=== PATIENT | female | born 1995 | race Caucasian/White ===

== ENCOUNTER 2025-07-13 17:48 | Emergency (ER) | payer OTHER, SELFPAY ==
--- OUTSIDE RECORDS SUMMARY | 2025-07-12 13:00 | XMS_ITS | Encounter Summary ---
Author Organization [facility] Address [address] [facility] [place] [address] Phone Care Team Providers Care Spar Machine Operator Name Role Phone Gina Maria APRN, CNP Primary Care P lexi Reason for Visit * Reason Comments Depression * Behavioral Health (Routine) - Authorized Specialty Diagnoses / Procedures Referred By Contbillie t Referred To Contact Licensed Clinical Professional Counselor / Behavioral Health Diagnoses Stress Procedures INDIVIDUAL THERAPY 45 Fani Steve [facility] 1 [place] [address] Phone: tel: fax: Referral ID Status Reason Start Date Expiration Date V isits Requested Visits Authorized [id number] Authorized 50 25 Encounter Details Date Type Department Care Team (Late st Contact Info) Description 07/12/2025 1:00 PM CDT Telemedicine [facility] 1 [place] [phone] Fani Steve [facility] 1 [place] [address] MDD (major depressive disorder), recurrent episode, moderate (HCC) (Primary Dx); Trauma and stressor-related disorder Discharge Disposition: Discharged to home or Selfcare Social History Tobacco Use Types Packs/Day Years Used Date Smoking Tobacco: Never Smokeless Tobacco: Never Alcohol Use Standard Drinks/Week Comments Never 0 (1 standard drink = 0.6 oz pur e alcohol) Sexually Active Control Partners Comments Not Currently Comments No Sex and Gender Information Value Date Recorded Sex Assigned at Not on file Legal Sex Female 7:18 PM CDT Gender Identity Not on file Sexual Orientation Not on file documented as of this encounter Patient Instructions * Patient Instructions* Fani Steve, [facility] - 07/12/2025 1:00 PM CDT Crisis Resources In-Home, Mental Health Crisis Assessment [facility] Crisis Intervention Team?[phone] ([place]) [facility] Crisis Intervention Team?.. [phone] ([place]) [facility] Available for individual, family, or friend for in-home assessment of mental health issues Crisis Stabilization- Residential 24-hour or short-term supervised care at a facility. Available for persons 18 and older, who are experiencing a mental health crisis and do not need hospitalization. [facility] provides 24-hour short-term supervised care for persons aged 18 years and older experiencing an acute psychiatric crisis that does not require hospitalization. The average length of stay is 14 days. Admission to our crisis unit is voluntary; we only accept those individuals who choose to come to the unit. The facility is not prepared to work with persons who may be acutely suicidal or homicidal or who are experiencing serious medical problems or complications. The unit is staffed with nurses and behavioral health technicians and is not a hospital. During their stay on the unit, clients spend time in groups that meet four or more times a day. Thegroups provide education on topics helpful to individuals in crisis and clients are expected to attend and to participate actively. [facility] will provide a safe and supportive environment conducive to achieving stability. No alcohol or drugs are allowed in the unit. All medications are dispensed by [facility] nurses at appropriate times. No visitors are allowed on the unit but there is a phone available for clients to use and make calls. Persons may refer themselves for crisis residential/stabilization services and may be referred by hospitals, police departments, mental health agencies, social service agencies, and families. [facility] ?.....? .[phone] [facility] ?.???..[phone] Brief Crisis Phone Counseling Behavioral Health Response (BHR)?[phone] / [phone] ([facility] (Medicaid patients) ?..[phone] If non-Medicaid patient, the caller will be referred to a local service provider Emergency Sites for Mental Health Assessment and Treatment Behavioral Health Urgent Care [facility] (5yrs old to adult) [address] [address] Friday - Friday 9:00 am - 7:00 pm *Last patient seen at 6:00 pm Hospitals with Inpatient Psychological Services for Children and/or Adolescents and Adults [facility] (also has substance use treatment for adults) (adolescent, adult) [address] [place] [address] [facility] (children, adolescents, adult) after business hours [phone] [address] [facility] Behavioral Health (children, adolescents, adult) [address] [place] [address] [facility] (also has substance use treatment for adults) (children, adolescents, adult) Phone: or [phone] [address] [place] [address] [facility] (adolescent, adult) Phone: or [phone] [address] [place] [address] Hospitals with Inpatient Psychological Services for Adults only [facility] (adult, geriatric) [address] [place] [address] [facility] (adult) [address] [place] [address] [facility] (adult) Phone: or [phone] [address] [place] [address] [facility] (geriatric only) Phone: or [phone] [address] [place] [address] [facility] (adult, geriatric) [address] [place], [place] Hotline Numbers National Suicide Prevention Hotline: ?..?.9-376-988-TALK (4031) or [address] [place] Sexual Assault Hotline?..?.?4-375-424-BANNER (3909) [facility] Sexual Assault Victims Support?..5-203-974-0793 [facility] Child Abuse Hotline?.7-716-372-8026 Domestic Violence Hotline?.?.3-156-307-S [place] (8881) [facility] Lifeline?.? Trans Lifeline?.? LGBTQ Partner Abuse & Sexual Assault Line . .1- 290.189.9544 [facility] including support for opioids or other substances.? Crisis Text Line???..?.?.? Text the word help to 808574 [facility] Text Line for service referrals.?.?. Text the word help to 650032 Warm Lines [facility]?4-630-318-79 [address] [place] Warmline? 9a-9p/7 days a week [facility] Warmline?..4-361-187-7452 documented in this encounter Progress Notes * Fani Steve LCPC - 07/12/2025 1:00 PM CDT [facility] CLINICAL PROGRESS NOTE NAME: Fabian Corado AGE: 29 y.o. DATE OF : 1995 DATE OF SERVICE: 07/12/2025 START TIME: 1:00 pm END TIME: 1:45 pm DIAGNOSIS: 1. MDD (major depressive disorder), recurrent episode, moderate (HCC) 2. Trauma and stressor-related disorder This session was conducted via telephone due to technological issues. Hyacinth would not allow her to access the video. TREATMENT PLAN: Goals Addressed This Visit's Progress I just want help. I don't want to be like this. On track Goal/Objective: Decrease symptoms associated with trauma. Anticipated Time Frame for Goal Completion: 6 months Goal Reviewed with: patient Readiness to change: Ready to change Department associated with goal: [facility] Steps to achieve goal: will share personal trauma story in counseling/psychotherapy sessions. will learn/identify how trauma has impacted personal life, physical health and behavioral health. will identify and practice, at least two, skills/activities/routines, to gain relief from the impact of trauma. Will attend individual and/or group therapy at least 1x/month at least 6 sessions PROBLEM STATUS: Fabian was seen today due to the following concerns: Anxiety: avoidance difficulties concentrating nervousness stress worry Depression: decreased motivation decreased participation in activities of daily living emotionality (anger, crying, irritability) fatigue/loss of energy feeling of hopelessness loss of interest/pleasure in activities low self esteem/self image mood regulation difficulties Trauma: emotional distress/physical reactions to discriminative stimuli hypervigilance negative thoughts or assumptions about self or world difficulty trusting others decreased interest in activities feelings of guilt or blame Persistent negative emotional state hopelessness Fabian presented in a depressed affect and actively engaged in the individual counseling session. Fabian processed challenges with completing tasks such as cleaning up, doing dishes, showering, etc. Fabian stated that she does not feel normal and at times she doesn't know who she is. Per patient's report, I want to be someone who is happy and someone who is confident in their decisions. Based upon the presenting problem the following treatment modalities were utilized: Cognitive Behavioral Therapy Cognitive Challenging Cognitive Restructuring Supportive/Client Centered Therapy DBT, TF-CBT FUNCTIONAL ASSESSMENT: Can the patient perform Activities of Daily Living (ADL'S)?: Patient is able to complete ADL's independently Does patient have the ability and the capacity to respond to treatment?: Yes THERAPEUTIC INTERVENTIONS USED: This clinician provided therapeutic interventions for: Anxiety: increasing insight into current difficulties identifying and reducing avoidance behaviors contributing negatively to anxious mood and behavior identifying and decreasing cognitive distortions/negative automatic thoughts contributing negatively to anxious mood and behavior identifying, verbalizing, and processing feelings effectively Depression: increasing insight into current difficulties identifying and decreasing cognitive distortions/negative automatic thoughts contributing negatively to depressed mood and behavior identifying, verbalizing, and processing feelings effectively implementing strategies to improve self esteem/self worth . Fabian verbalized an understanding and responded well to interventions provided during treatment session. PROGRESS TOWARDS GOALS: Fabian reported no change in symptoms. \ MENTAL STATUS EXAM: Fabian is: alert. Affect is: mood congruent. Mood is: depressed sad. There is: no current suicidal ideation. This content writer will continue to assess. There is: no history of homicidal ideation.. TREATMENT RECOMMENDATIONS/FOLLOW UP: Recommendations for follow up treatment plan: Continue individual therapy as needed for support and guidance. FANI STEVE LCPC documented in this encounter Plan of Treatment Upcoming Encounters Date Type Department Care Team (Late st Contact Info) Description 07/26/2025 1:00 PM CDT Outpatient Clinic Visit [facility] [address] [place] [address] Fani Steve [facility] [address] [place] [address] 08/01/2025 10:15 AM CDT Office Visit [facility] - Primary Care - [place] [address] [place] [address] Gina Maria APRN, STOCK ROLLER [address] [place] [address] documented as of this encounter Goals Goal Patient Goal Type Associated Problems Recent Progress Patient-Stated? Author I just want help. I don't want to be like this. Behavioral Health On track( 025 1:00 PM CDT) No Fani Steve LCPC Note: Goal/Objective: Decrease symptoms associated with trauma. Anticipated Time Frame for Goal Completion: 6 months Goal Reviewed with: patient Readiness to change: Ready to change Department associated with goal: [facility] Steps to achieve goal: will share personal trauma story in counseling/psychotherapy sessions. will learn/identify how trauma has impacted personal life, physical health and behavioral health. will identify and practice, at least two, skills/activities/routines, to gain relief from the impact of trauma. Will attend individual and/or group therapy at least 1x/month at least 6 sessions documented as of this encounter Visit Diagnoses Diagnosis MDD (major depressive disorder), recurrent episode, moderate (HCC)- Primary Major depressive disorder, recurrent episode, moderate Trauma and stressor-related disorder documented in this encounter Care Teams Spar Machine Operator Relationship Specialty Start Date End Date Gina Maria APRN, STOCK ROLLER [address] [place] [address] PCP - General Advanced Practice Nurse 04/26/24 documented as of this encounter
--- OUTSIDE RECORDS SUMMARY | 2025-07-13 17:54 | XMS_ITS | Encounter Summary ---
Author Organization [facility] Care Team Providers Care National Flatbed Truck Driver Name Role Phone Gina Maria APRN, CNP Primary Care P rovider Encounter Details Date Type Department Care Team (Latest Contact Info) Description 07/12/2025 Travel Social History Tobacco Use Types Packs/Day Years [...] on file documented as of this encounter Plan of Treatment Upcoming Encounters Date Type Department Care Team (Late Contact Info) Description 07/26/2025 1:00 PM CDT [facility] 1 [place] [phone] Fani Steve, [facility] 1 [place] [address] 08/01/2025 10:15 AM CDT Office Visit [facility] - Primary Care - [place] [address] [place] [phone] Gina Maria APRN, CNP [address] [place] [address] documented as of this encounter Goals Goal Patient Goal Type Associated Problems Recent Progress Patient-Stated? Author I just want help. I don't want to be like this. Behavioral Health On track( 025 1:00 PM CDT) Fani Ni, [facility] Note: Goal/Objective: Decrease symptoms associated with trauma. Anticipated Time Frame for Goal Completion: 6 months Goal Reviewed with: patient Readiness to change: Ready to change Department associated with goal: [facility] Steps to achieve goal: [...] documented as of this encounter Visit Diagnoses Not on filedocumented in this encounter Care Teams National Flatbed Truck Driver Relationship Specialty Start Date End Date Gina Maria APRN, RECOVERY COLLECTOR [address] [place] [address] PCP - General Advanced Practice Nurse 04/26/24 documented as of this encounter
--- OUTSIDE RECORDS SUMMARY | 2025-07-13 17:54 | XMS_ITS | Clinical Summary ---
Author Organization [facility] Address [address] [place] [address] Phone Care Team Providers Care Machine Operator General Name Role Phone Gina Maria APRN, MELQUIADES Primary Care P lexi Allergies No known active allergies Medications etonogestrel (Nexplanon) 68 MG Implant by Subcutaneous route once. Active Active Problems Problem Noted Date Diagnosed Date MDD (major depressive disord er), recurrent episode, moderate 02/18/2025 Encounters Date Type Department Care Team Description 07/12/2025 1:00 PM CDT Telemedicine [facility] [address] [place] [phone] Fani Steve LCPC MDD (major depressive disorder), recurrent episode, moderate (HCC) (Primary Dx); Trauma and stressor-related disorder Discharge Disposition: Discharged to home or Selfcare 07/12/2025 Travel 07/04/2025 12:15 PM CDT Telemedicine [facility] 1 [place] [phone] Fani Steve LCPC MDD (major depressive disorder), recurrent episode, moderate (HCC) (Primary Dx); Trauma and stressor-related disorder Discharge Disposition: Discharged to home or Selfcare 07/04/2025 Travel 06/21/2025 2:00 PM CDT Telemedicine [facility] [address] [place] [address] Fani Steve LCPC MDD (major depressive disorder), recurrent episode, moderate (HCC) (Primary Dx); Trauma and stressor-related disorder Discharge Disposition: Discharged to home or Selfcare 06/21/2025 Travel 06/07/2025 2:00 PM CDT Telemedicine [facility] [address] [place] [address] Fani Steve LCPC MDD (major depressive disorder), recurrent episode, moderate (HCC) (Primary Dx); Trauma and stressor-related disorder Discharge Disposition: Discharged to home or Selfcare 06/07/2025 Travel 05/31/2025 2:00 PM CDT Telemedicine [facility] [address] [place] [address] Fani Steve LCPC Trauma and stressor-related disorder (Primary Dx); MDD (major depressive disorder), recurrent episode, moderate (HCC) Discharge Disposition: Discharged to home or Selfcare 05/31/2025 Travel 05/16/2025 12:45 PM CDT Telemedicine [facility] [address] [place] [address] Fani Steve LCPC Trauma and stressor-related disorder (Primary Dx); MDD (major depressive disorder), recurrent episode, moderate (HCC) Discharge Disposition: Discharged to home or Selfcare 05/16/2025 Travel 05/05/2025 2:00 PM CDT Telemedicine [facility] [address] [place] [address] Fani Steve LCPC Trauma and stressor-related disorder (Primary Dx); MDD (major depressive disorder), recurrent episode, moderate (HCC) Discharge Disposition: Discharged to home or Selfcare 05/05/2025 Travel from Last 3 Months Immunizations Immunization Administration Dates Next Due DTAP VACCINE 08/18/2000 DTP Vaccine 07/02/1996 DTP-Hib 03/28/1995,01/31/1995,1994 Hepatitis A Vaccine 02/18/2014 Hepatitis A Vaccine, Pediatr ic/adolescent, 2 Dose Schedule 05/21/2013 Hepatitis B Vaccine, Pediatric/adolescent 1994,1994,1994 Hib Vaccine,unspecified Formulation 07/02/1996 Inactivated Polio Vaccine 08/18/2000 Influenza Vaccine, Quadrivalent, PF 10/06/2020,0 12/08/2018 MMR Vaccine 04/02/2019,08/18/2000,07/02/1996 OPV 03/28/1995,01/31/1995,1994 Rho(d) Immune Globulin - Im 04/01/2019, 9 TDAP Vaccine 12/08/2020,01/01/2019,06/25/2011 Family History Medical History Relation Name Comments Bipolar Disorder Brother Cancer Father Bipolar Disorder Maternal Aunt Relation Name Status Comments Brother Alive Father Maternal Aunt Alive Mother Alive Sister Social History Tobacco Use Types Packs/Day Years Used Date Smoking Tobacco: Never Smokeless Tobacco: Never Tobacco Cessation:Counseling Given: No Alcohol Use Standard Drinks/Week Comments Never 0 (1 standard drink = 0.6 oz pur e alcohol) Sexually Active Control Partners Comments Not Currently Comments No Sex and Gender Information Value Date Recorded Sex Assigned at Not on file Legal Sex Female 7:18 PM CDT Gender Identity Not on file Sexual Orientation Not on file Last Filed Vital Signs Vital Sign Reading Time Taken Comments Blood Pressure 116/74 04/26/2024 8:13 AM CDT Pulse 71 04/26/2024 8:13 AM CDT Temperature 36.3 C (97.4 F) 04/26/2024 8:13 AM CDT Respiratory Rate 20 04/26/2024 8:13 AM CDT Oxygen Saturation 98% 04/26/2024 8:13 AM CDT Inhaled Oxygen Concentration - - Weight 173.3 kg (382 lb) 04/26/2024 8:13 AM CDT Height 176.5 cm (5' 9.5) 04/26/2024 8:13 AM CDT Body Mass Index 55.6 04/26/2024 8:13 AM CDT Plan of Treatment Upcoming Encounters Date Type Department Care Team (Late st Contact Info) Description 07/26/2025 1:00 PM CDT Outpatient Clinic Visit [facility] 1 [place] [address] Fani Steve, [facility] [address] [place] [address] 08/01/2025 10:15 AM CDT Office Visit [facility] - Primary Care - [place] [address] [place] [address] Gina Maria, CRYSTAL SYRUP MAKER, PROSTHETICS ASSISTANT [address] [place] [address] Health Maintenance Due Date Last Done Comments Human Papillomavirus (HPV) Immunization (1 - 3-dose SCDM series) 2021 Pap Smear 08/31/2023 08/31/2020 SARS-COV-2 Immunization ( season) 2024 Influenza Immunization (#1) 2025 10/06/2020, 0 12/08/2018 Cervical Cancer Screening (CCS) 03/10/2030 HPV/Cotest 03/10/2030 03/10/2025 DTaP/Tdap/Td Immunization (9 - Td or Tdap) 12/08/2030 12/08/2020, 01/01/2019, 06/25/2011, Additional history exists Respiratory Syncytial Virus (RSV) Immunization (Adult) (1 - 1-dose 75+ series) 2069 Hepatitis B Immunization Completed 995, 1994, 1994 Hepatitis C Virus (HCV) Screening Completed 11/04/2018, 11/04/2018 TdaP Immunization Discontinued 12/08/2020, , 06/25/2011 Meningococcal Immunization (ACWY) Aged Out No longer eligible based on patient's age to complete this topic Pneumococcal Immunization Combined Aged Out No longer eligible based on patient's age to complete this topic Rotavirus Immunization Aged Out No lo nger eligible based on patient's age to complete this topic Goals Goal Patient Goal Type Associated Problems Recent Progress Patient-Stated? Author I just want help. I don't want to be like this. Behavioral Health On track( 025 1:00 PM CDT) No Fani Steve, [facility] Note: Goal/Objective: Decrease symptoms associated with trauma. Anticipated Time Frame for Goal Completion: 6 months Goal Reviewed with: patient Readiness to change: Ready to change Department associated with goal: [facility] Steps to achieve goal: will share personal trauma story in counseling/psychotherapy sessions. will learn/identify how trauma has impacted personal life, physical health and behavioral health. will identify and practice, at least two, skills/activities/routines, to gain relief from the impact of trauma. Will attend individual and/or group therapy at least 1x/month at least 6 sessions Procedures Procedure Name Priority Date/Time Associated Diagnosis Comments PATHOLOGY CYTOLOGY HEAD OF OPERATION AND LOGISTICS 08/31/2020 12:00 AM CDT from Last 3 Months or Most Recently Relevant to Health Maintenance Results * PATHOLOGY CYTOLOGY HEAD OF OPERATION AND LOGISTICS (08/31/2020 12:00 AM CDT) 08/31/2020 us Provider Scan PATHOLOGY/CYTOLOGY ORDERABLES Fi nal Result AP NON-INTERFACED RE[facility]IES from Last 3 Months or Most Recently Relevant to Health Maintenance Insurance [place]ICAID [place] Care Teams Machine Operator General Relationship Specialty Start Date End Date Gina Maria, CRYSTAL SYRUP MAKER, PROSTHETICS ASSISTANT [address] [place] [address] PCP - General Advanced Practice Nurse 04/26/24
--- OUTSIDE RECORDS SUMMARY | 2025-07-13 17:54 | XMS_ITS | Clinical Summary ---
Author Organization [facility] Address [address] [place] [address] Care Team Providers Care Music Journalist Name Role Phone Unavailable Primary Care Provider Unavailabl e Source Comments [facility],non-owned Affiliates and Associated Physician Practices is amultiple site organization consisting of ambulatory clinics and hospital sitesin [place], [place], [place] and [place]. This disclosure is being madepursuant to the Care Everywhere program and may not contain all information available regarding this patient. Last updated 18.[facility] Medications * Be aware that medications may not be up to date on this document. Alwaysverify current medications with the patient. sertraline (ZOLOFT) 50 MG tablet Take one tablet by mouth once daily for 3 weeks, may then increase dose to 2 tablets by mouth daily. 100 tablet 1 06/05/2019 Active Active Problems Problem Noted Date Diagnosed Date depression 05/28/2019 Postmaturity , 40-42 weeks gestation Encounter for supervision of normal first in second trimester 11/04/2018 Overview (11/05/2018): O negative, hep B and C negative, syphilis negative, HIV nonreactive, rubella nonimmune Marijuana use, continuous 11/04/2018 Resolved Problems Problem Noted Date Diagnosed Date Resolved Date (spontaneous vaginal delivery) 03/31/2019 04/02/2019 Rubella non-immune status, antepartum 11/05/2018 04/02/2019 Rh negative state in antepartum period 11/05/2018 04/02/2019 Obesity affecting in second trimester 11/04/2018 04/02/2019 Overview (11/05/2018): A1c within normal limits Immunizations Immunization Administration Dates Next Due INFLUENZA VACCINE, QUADR. (F LUZONE; FLULAVAL; FLUARIX; AFLURIA QUADRIVALENT; 6MO+), 0.5 ML (IIV4) 12/08/2018 MMR 04/02/2019 Rho D Immune Globulin 04/01/2019,01/01/2019 TDAP (7yrs+) 01/01/2019 Social History Tobacco Use Types Packs/Day Years Used Date Smoking Tobacco: Former Smokeless Tobacco: Never Alcohol Use Standard Drinks/Week Comments No 0 (1 standard drink = 0.6 oz pur e alcohol) Comments No Sex and Gender Information Value Date Recorded Sex Assigned at Not on file Legal Sex Female 4:50 AM [employer] Gender Identity Not on file Sexual Orientation Not on file Last Filed Vital Signs Vital Sign Reading Time Taken Comments Blood Pressure 128/84 05/28/2019 10:37 AM CDT Pulse 72 04/02/2019 3:12 PM CDT Temperature 37.1 C (98.7 F) 04/02/2019 3:12 PM CDT Respiratory Rate 20 04/02/2019 3:12 PM CDT Oxygen Saturation 100% 04/02/2019 3:12 PM CDT Inhaled Oxygen Concentration - - Weight 167.4 kg (369 lb) 05/28/2019 10:37 AM CDT Height 177.8 cm (5' 10) 05/28/2019 10:37 AM CDT Body Mass Index 52.95 05/28/2019 10:37 AM CDT Plan of Treatment Health Maintenance Due Date Last Done Comments HEPATITIS B VACCINE (1 of 3 - 19+ 3-dose series) 2013 HPV VACCINE (1 - 3-dose SCDM series) 2021 COVID-19 VACCINE ( - 2023-2 5 season) 2024 DEPRESSION SCREENING 11/17/2024 INFLUENZA VACCINE (#1) 2025 12/08/2018 DTAP/TDAP/TD VACCINES (2 - T d or Tdap) 01/01/2029 01/01/2019 ZOSTER VACCINE (1 of 2) 2044 HEPATITIS C SCREENING Completed 11/04/2018 HIV SCREENING Completed 01/01/2019, 11/04/2018 HIB VACCINE Aged Out No longer eligi ble based on patient's age to complete this topic MENINGOCOCCAL (Group B) VACCINE SHARED DECISION-MAKING Aged Out No longer eligible based on patient's age to complete this topic MENINGOCOCCAL GROUPS A/C/Y/W VACCINE Aged Out No longer eligible b ased on patient's age to complete this topic PNEUMOCOCCAL VACCINE Aged Out No long er eligible based on patient's age to complete this topic Procedures Procedure Name Priority Date/Time Associated Diagnosis Comments CULTURE STREP B Routine 03/02/2019 10:56 AM CDT Encounter for supervision of normal first in third trimester with 36 completed weeks gestation GLUCOSE CHALLENGE Routine 01/01/2019 11: 30 AM [employer] Encounter for supervision of normal first in second trimester with 27 completed weeks gestation HIV-1 HIV-2 ANTIGEN/ANTIBODY W RFLX Routine 01/01/2019 11:30 AM [employer] Encounter for supervision of normal first in second trimester with 27 completed weeks gestation HEPATITIS C ANTIBODY Routine 11/04/2018 3:27 PM [employer] Encounter for supervision of normal first in second trimester with 19 completed weeks gestation from Last 3 Months or Most Recently Relevant to Health Maintenance Results * CULTURE STREP B (03/02/2019 10:56 AM CDT) Strep Group B Culture Negative Negative [facility] INSURANCE BILL Comment: Centers for Disease Control and Prevention (CDC) and [place] [employer] of [employer]st[employer]ians [employer] Gynecologists (ACOG) guidelines for prevention of group B streptococcal (GBS) disease specify co-collection of a vaginal and rectal swab specimen to maximize sensitivity of GBS detection. Per the CDC and ACOG, swabbing both the lower vagina and rectum substantially increases the yield of detection compared with sampling the vagina alone. . Penicillin G, ampicillin, or cefazolin are indicated for intrapartum prophylaxis of GBS colonization. Reflex susceptibility testing should be performed prior to use of clindamycin only on GBS isolates from penicillin-allergic women who are considered a high risk for anaphylaxis. Treatment with vancomycin without additional testing is warranted if resistance to clindamycin is noted. Microbiology MISCELLANEOUS SAMPLES / Unknown 03/02/2019 10:56 AM CDT 03/02/2019 Narrative Resulting Agency Comment [facility] [address] [phone] Karin Wilson MD LAB - MICROBIOLOGY ORDERABL ES Final Result Performing Organization Address [facility] de Phone Number [facility] [address] [place] [address] * HIV-1 HIV-2 ANTIGEN/ANTIBODY W RFLX (01/01/2019 11:30 AM [employer]) [facility] HIV Screen 4th Generation w Reflex Non Reactive Non Reactive [facility] INSURANCE BILL Blood BLOOD SPECIMEN / Unknown 01/01/2019 11:30 AM [employer] 01/01/2019 Narrative Resulting Agency Comment [address] [phone] Karin Wilson MD LAB - SEROLOGY ORDERABLES F inal Result Performing Organization Address [facility] de Phone Number [facility] INSURANCE BILL [address] [place] [address] * GLUCOSE CHALLENGE (01/01/2019 11:30 AM [employer]) [facility] GTT 1Hr 82 65 - 139 mg/dL [facility] INSURANCE BILL Comment: According to ADA, a glucose threshold of >139 mg/dL after 50-gram load identifies approximately 80% of women with gestational diabetes mellitus, while the sensitivity is further increased to approximately 90% by a threshold of >129 mg/dL. Blood BLOOD SPECIMEN / Unknown 01/01/2019 11:30 AM [employer] 01/01/2019 Narrative Resulting Agency Comment [facility] [address] [facility] [phone] Karin Wilson MD LAB - CHEMISTRY ORDERABLES Final Result Performing Organization Address [facility] de Phone Number [facility] [address] [place] [address] * HEPATITIS C ANTIBODY (11/04/2018 3:27 PM [employer]) [facility] Hepatitis C Antibody <0.1 0.0 - 0.9 s/co ratio [facility] INSURANCE BILL Comment: Negative: < 0.8 Indeterminate: 0.8 - 0.9 Positive: > 0.9 . The CDC recommends that a positive HCV antibody result be followed up with a HCV Nucleic Acid Amplification test (947573). Blood BLOOD SPECIMEN / Unknown 11/04/2018 3:27 PM [employer] 11/04/2018 Narrative Resulting Agency Comment [facility] [address] [phone] Karin Wilson MD LAB - CHEMISTRY ORDERABLES Final Result [facility] INSURANCE BILL [address] [place] [address] from Last 3 Months or Most Recently Relevant to Health Maintenance Insurance [place] Advance Directives * Full Code (Latest Code Status on File) Date Activated Date Inactivated Comments 03/30/2019 6:56 PM 04/02/2019 8:09 PM
[2025-07-13 17:55] VITALS: BP 133/71; PULSE 70; RESP 18; TEMP 36.2; O2SAT 100
--- NOTE | 2025-07-13 17:55 | ED.URI ---
HPI - URI/Sore Throat General Chief Complaint: Upper Respiratory Infection Stated Complaint: chest congestion/hard time breathing Time Seen by Provider: 07/13/25 18:01 Source: patient Mode of arrival: ambulatory Limitations: no limitations History of Present Illness HPI Narrative: 29 yo F presents with c/o cough, congestion, fatigue for 4 days. Afebrile. States flu-like symptoms. Today began having chest congestion. Not taking any OTC meds to treat symptoms. Son sick with similar symptoms that resolved after 2 days. All systems reviewed and negative excetp as noted above. Related Data Allergies Allergy/AdvReac Type Severity Reaction Status Date / Time No Known Allergies Allergy Unverified 07/13/25 17:54 PMFSH Comments At time of signature, agree with nursing past medical, surgical, social and family history. There is no relevant family history pertinent to the presenting complaint. Exam Narrative: GENERAL: This is a well-nourished, well-developed patient, in no apparent distress. HEAD: normocephalic, atraumatic. EYES: PERRL. Sclera clear/white. Vision is grossly intact. EARS: External ears normal, auditory canals clear and without drainage, TMs normal without perforation. Hearing grossly intact. NOSE: External nose normal with Clear nasal drainage THROAT: Mucous membranes moist, mild erythema without swelling or exudates NECK: Neck supple, non-tender without lymphadenopathy, masses or thyromegaly. CARDIOVASCULAR: Regular rate and rhythm without murmurs, gallops, or rubs. RESPIRATORY: Clear to auscultation. Breath sounds equal bilaterally. No wheezes, rales, or rhonchi. SKIN: warm, Dry, intact with no suspicious lesions or rash, good texture and turgor. NEURO: awake, alert, and oriented to person, place and time. There were no obvious focal neurologic abnormalities. EXTREMITIES: No joint tenderness, effusion, or edema noted. Course Course Level of Care: Express Care Visit Vital Signs Vital signs: reviewed MDM - URI/Sore Throat MDM Narrative Medical decision making narrative: positive COVID. Patient's lungs are clear to auscultation. Alert, nontoxic. Recommend [id number] medications to treat symptoms. Differential Diagnosis Differential diagnosis: Likely upper respiratory infection, sinusitis, viral infection, influenza and other ( COVID) Discharge Plan Discharge Clinical Impression: COVID-19 Patient Disposition: Home Condition: Stable Instructions: COVID-19 (Coronavirus Disease 2019) (ED) Additional Instructions: your COVID test was positive today. COVID is a virus and symptoms may last 10-14 days. Take an [id number] medication to treat her symptoms such as DayQuil NyQuil cold and flu. Take as directed on packaging. Drink at least 64 oz water a day. See your doctor if symptoms are not improving. If you have chest pain or shortness of breath go to the ER. Patient Language: Salvadorean Follow-up/Referrals: PHYSICIAN NOT ON STAFF,NONSTAFF [Primary Care Provider] Time of Disposition: 18:21
[2025-07-13 18:26] LABS: EDCOVIDSCREEN Positive (Negative); EDINFLUASCREEN Negative (Negative); EDINFLUBSCREEN Negative (Negative)
== END 2025-07-13 18:26 | disposition home or self-care (01) ==
PROVIDERS: Emergency Provider Nurse Practitioner Family
DX: U07.1 COVID-19 (principal)
CPT/HCPCS: 87426; 87804; 99212; G0463